=== PATIENT | male | born 1980 | race Caucasian/White ===

== ENCOUNTER 2018-01-22 00:05 | Observation (INO) | payer BC ==
[2018-01-22 00:32] LABS: #Basophils 0.1 thou/uL (0.0-0.2); #Eosinphils 0.1 thou/uL (0.0-0.7); #Lymphocytes 2.8 thou/uL (1.20-3.40); #Monocytes 0.6 thou/uL (0.11-0.59); #Neutrophils 5.1 thou/uL (1.40-6.50); %Basophils 0.9 % (0.0-1.0); %Eosinophils 0.7 % (0.0-10.0); %Lymphocytes 32.1 % (21.0-51.0); %Monocytes 7.4 % (0.0-10.0); %Neutrophils 58.9 % (42.0-75.0); Mean Corpuscular HGB CONC 34.6 g/dL (32.0-36.0); Mean Corpuscular Hemoglobin 31.5 pg (27.0-31.0); Mean Platelet Volume 9.3 fL (7.4-10.4); Platelet Count 206 thou/uL (130-400); RBC Distribution Width 11.8 % (11.5-14.5); Red Blood Cell (RBC) Count 4.75 mill/uL (4.70-6.10); White Blood Cell (WBC) Count 8.7 thou/uL (4.8-10.8)
[2018-01-22 00:53] LABS: AST (SGOT) 26 U/L (5-34); Albumin 4.6 g/dL (3.5-5.0); Anion Gap 13 mmol/L (10-20); Bilirubin, Total 0.3 mg/dL (0.2-1.2); Calc. Creatinine Clearance 0 mL/min (70-130); Calcium 9.3 mg/dL (7.8-10.44); Carbon Dioxide 25 mmol/L (22-29); Chloride 104 mmol/L (98-107); Estimated GFR-MDRD 64; Globulin 2.8 g/dL (2.4-3.5); Glucose 126 mg/dL (70-105); Potassium 4.1 mmol/L (3.5-5.1); Protein, Total 7.4 g/dL (6.0-8.3); Sodium 138 mmol/L (136-145)
[2018-01-22 00:59] LABS: ALT (SGPT) 34 U/L (8-55); Alkaline Phosphatase 68 U/L (40-150); BUN (Urea Nitrogen) 14 mg/dL (8.9-20.6)
[2018-01-22 01:05] LABS: CKMB 2.1 ng/mL (0-6.6); Troponin I Less than 0.010 ng/mL (< 0.028)
[2018-01-22] MEDS ORDERED: Nitroglycerin 0.4 MG TAB (25 Tab Bottle) ONE (01:16)
[2018-01-22 04:54] VITALS: BMI 40.3
[2018-01-22] MEDS ORDERED: Acetaminophen 325 MG TAB PO PRN (04:59)
[2018-01-22] MEDS ORDERED: Ondansetron ODT 4 MG TAB SL PRN (04:59)
[2018-01-22] MEDS ORDERED: Ondansetron HCl/PF 4 MG/2 ML Vial IVP PRN (04:59)
[2018-01-22 05:21] LABS: Troponin I Less than 0.010 ng/mL (< 0.028)
[2018-01-22] MEDS ORDERED: Nitroglycerin 0.4 MG TAB (25 Tab Bottle) SL PRN (10:53)
--- NOTE | 2018-01-22 11:23 | HP ---
PRIMARY CARE PROVIDER: Dr. Carline Morley in [place], [place]. CHIEF COMPLAINT: Chest pain. HISTORY OF PRESENT ILLNESS: Mr. Meraz is a pleasant 37-year-old gentleman who was seen at [facility] on 01/22/2018. He reports that 2 nights ago, he developed chest pain. He describes it as across his chest, radiatin g to both shoulders, pressure-like, 4-5/10, accompanied by shortness of breath, but not with nausea o r lightheadedness. He also reports a pleuritic component to the chest discomfort. The chest pain re solved, but recurred last night. He came to the emergency room, where he received aspirin and nitrog lycerin, which made the chest pain better. He currently reports that he is feeling much better. Please note that the computer systems are not working at this time. I only have access to some of th e blood work that was done through the emergency room. REVIEW OF SYSTEMS: All other systems reviewed and found to be negative. PAST MEDICAL HISTORY: None. PAST SURGICAL HISTORY: None. SOCIAL HISTORY: Patient chews tobacco. Occasional alcohol use, no recreational drug use. FAMILY HISTORY: Significant for several family members with coronary artery disease on his mother's side. He also reports some family members who had myocardial infarction in their 50s. ALLERGIES: No known drug allergies. CURRENT MEDICATIONS: None. PHYSICAL EXAMINATION: GENERAL: Mr. Meraz is awake and alert, not in acute distress. He is obese. VITAL SIGNS: Blood pressure is 120/72, pulse 62, respiratory rate 19, and oxygen saturation 95% on r oom air. EYES: No scleral icterus. No conjunctival pallor. ENT: Moist mucosal membranes, no oropharyngeal erythema or exudates. NECK: Supple, nontender. Trachea is midline. RESPIRATORY: Accessory muscles of breathing are not active. Chest wall movements are symmetric bila terally. Lungs are clear to auscultation without wheeze, rhonchi or crepitations. CARDIOVASCULAR: S1 and S2 are heard, regular. Peripheral pulses palpable. No carotid bruit, no per icardial rub. ABDOMEN: Soft, nontender, bowel sounds are heard, no hepatomegaly, no splenomegaly. NEUROLOGIC: Cranial nerves II through XII intact. Deep tendon reflexes 2+. MUSCULOSKELETAL: Power is 5/5 in all 4 extremities. SKIN: No rashes or subcutaneous nodules. LYMPHATIC: No cervical lymphadenopathy. PSYCHIATRIC: Normal mood, normal affect, patient is oriented to person, place, and time. DATABASE: Mr. Meraz's labs and investigations were reviewed. Electrocardiogram shows normal sinus rhythm, no ST changes to suggest an acute coronary syndrome. He also had a chest x-ray, which I am u nable to access at this time. He has normal white count, normal hemoglobin, normal platelet count, n ormal electrolytes, mildly elevated glucose of 126, unremarkable liver profile and normal creatinine. ASSESSMENT AND PLAN: Mr. Meraz is a pleasant 37-year-old gentleman who was seen at [facility] on 01/22/2018. His problem list includes: 1. Chest pain: Etiology unclear at this time, he is awaiting Lexiscan stress test. We will also ch taina a D-dimer to rule out pulmonary embolism. Further management depending on the outcome of this te st. 2. Tobacco use: The patient counseled regarding tobacco cessation. Many thanks for allowing me to participate in your patient's care. Please feel free to contact me wi th any questions or concerns. LEVEL OF RISK: Moderate. LEVEL OF COMPLEXITY: Moderate.
--- NOTE | 2018-01-22 11:24 | RAD ---
UPRIGHT PORTABLE CHEST ONE VIEW: HISTORY: A 37-year-old male with a history of discomfort and pressure in the chest. Difficulty breathing. FINDINGS: Heart size is within normal limits. Lungs are clear. IMPRESSION: No acute intrathoracic disease. POS: TPC
[2018-01-22 13:00] LABS: Anion Gap 12 mmol/L (10-20); BUN (Urea Nitrogen) 13 mg/dL (8.9-20.6); Calc. Creatinine Clearance 214 mL/min (70-130); Carbon Dioxide 22 mmol/L (22-29); Chloride 107 mmol/L (98-107); Estimated GFR-MDRD 89; Potassium 4.3 mmol/L (3.5-5.1); Sodium 137 mmol/L (136-145)
[2018-01-22 13:01] LABS: Calcium 9.2 mg/dL (7.8-10.44); Glucose 107 mg/dL (70-105)
[2018-01-22 13:15] LABS: Troponin I Less than 0.010 ng/mL (< 0.028)
--- NOTE | 2018-01-22 15:43 | PDOC.EVN ---
Event Note - Event Note Event Note: Treadmill stress test normal on EKG portion, unable to obtain good images. Pt should followup with PCP. Will keep pt NPO in case he has a recurrence of chest pain. Awaiting CT angio to r/o PE.
[2018-01-22 15:50] VITALS: BP 128/82; TEMP 97.5
[2018-01-22 16:37] LABS: #Eosinphils 0.1 thou/uL (0.0-0.7); #Monocytes 0.8 thou/uL (0.11-0.59); #Neutrophils 4.2 thou/uL (1.40-6.50); %Basophils 0.6 % (0.0-1.0); %Eosinophils 2.1 % (0.0-10.0); %Lymphocytes 27.7 % (21.0-51.0); %Monocytes 10.6 % (0.0-10.0); %Neutrophils 59.1 % (42.0-75.0); Hemoglobin 14.8 g/dL (14.0-18.0); Mean Corpuscular Hemoglobin 32.1 pg (27.0-31.0); Mean Corpuscular Volume 91.8 fL (78.0-98.0); Mean Platelet Volume 9.4 fL (7.4-10.4); Platelet Count 200 thou/uL (130-400); RBC Distribution Width 11.9 % (11.5-14.5); Red Blood Cell (RBC) Count 4.61 mill/uL (4.70-6.10); White Blood Cell (WBC) Count 7.1 thou/uL (4.8-10.8)
[2018-01-23] MEDS ORDERED: Aspirin 325 MG TAB PO SCH (09:00)
--- NOTE | 2018-01-23 21:27 | DIS ---
PRIMARY CARE PROVIDER: Dr. Carline Morley in [place], [place]. DATE OF ADMISSION: 01/22/2018 DATE OF DISCHARGE: 01/22/2018 DISCHARGE DIAGNOSIS: Chest pain, most likely musculoskeletal. HOSPITAL COURSE: Mr. Meraz is a pleasant 37-year-old gentleman, who was admitted to [facility] on 01/22/2018 for chest pain. Please refer to my history and physical note dated 01/22/2018 for further details. Pulmonary embolism was ruled out with negative D-dimer. His chest p ain improved. He had a treadmill EKG stress test, which was normal. He was discharged home in a sta ble condition and advised to follow up with his primary care provider.
--- NOTE | 2018-02-01 09:28 | STRESS ---
Acquisition Time: 2018-01-22 12:45:40 Total Exercise Time: 00:09:31 Test Indications: CHEST PAIN Medications: Protocol: CARLOS Max HR: 169 BPM 91% of Pred: 184 BPM Max BP: 192/080 mmHG Max Work Load: 11.9 METS THE PATIENT EXERCISED FOR 9:30 ON A CARLOS PROTOCOL. PEAK HEART RATE= 169 BPM AND TARGET HEART RATE= 156 BPM. HE DID NOT DEVELOP CHEST PAIN. THERE WAS NO SIGNIFICANT ST DEPRESSION WITH EXERCISE. NORMAL EXERCISE TREADMILL TEST. AWAIT NUCLEAR IMAGES FOR DEFINITIVE DIAGNOSIS. Confirmed by SUZANNE BURGESS ([id number]), publishing editor LINK MATIAS ([id number]) on 02/01/2018 9:28:29 AM Referred By: MD Michoacano COLINDRES Confirmed By:SUZANNE BURGESS
--- NOTE | 2018-02-02 13:16 | EKG ---
Test Reason : CHEST PAIN Blood Pressure : / mmHG Vent. Rate : 066 BPM Atrial Rate : 066 BPM P-R Int : 180 ms QRS Dur : 094 ms QT Int : 406 ms P-R-T Axes : 010 031 043 degrees QTc Int : 425 ms Normal sinus rhythm Normal ECG Confirmed by ROSA M COLINDRES ([id number]), industrial editor HARRIS PARSON ([id number]) on 02/02/2018 1:15:41 PM Referred By: Confirmed By:ROSA M COLINDRES
== END 2018-01-22 17:08 | disposition home or self-care (01) ==
LOC: ERS 00:05 → 2SW 02:25
PROVIDERS: ADMIT Internal Medicine; ATTEND Internal Medicine
DX: R07.9 Chest pain, unspecified (principal); F17.200 Nicotine dependence, unspecified, uncomplicated
CPT/HCPCS: 36415; 71045; 80053; 82553; 84484; 85025; 85379; 93005; 93017; A4216; G0378